=== PATIENT | male | born 1945 | race Caucasian/White ===

== ENCOUNTER 2021-12-09 14:15 | Emergency (ER) | payer MEDICARE, MEDICAID, SELFPAY ==
--- NOTE | ~2021-12-09 | XR_ITS ---
EXAMINATION: XR CHEST CLINICAL INFORMATION: Low blood pressure and sepsis COMPARISON: None TECHNIQUE: Frontal view of the chest was obtained. FINDINGS: The heart and pulmonary vessels appear normal allowing for the supine position. Some minimal atelectasis present in the right midlung and left base. No infiltrates or large effusions are present. No lung masses are seen. Rotator cuff disease is present on the left with calcification in the supraspinatus tendon. XR/XR chest 1V IMPRESSION: No acute intrathoracic disease. Underlying source of the patient's sepsis has not been found.
--- NOTE | ~2021-12-09 | CT_ITS ---
EXAMINATION: CT ABDOMEN AND PELVIS WITHOUT CONTRAST CLINICAL INFORMATION: low abdominal pain, stool coming out of decubitus . COMPARISON: No pertinent prior studies are available for comparison. TECHNIQUE: Multidetector volumetric imaging was performed from the superior aspect of the liver through the pubic symphysis without contrast per request. Sagittal and coronal reformatted images were obtained on the technologist workstation. This CT examination was performed using dose optimization techniques as appropriate, variously including the following: *Automated exposure control *Adjustment of mA and/or kV according to patient size (this includes techniques or standardized protocols for targeted exams where dose is matched to indication/reason for exam; i.e. extremities or head) *Use of iterative reconstruction technique DLP: 937 mGy-cm. FINDINGS: LUNG BASES: Linear markings at the right base more likely due to scarring or atelectasis. Skin thickening overlying the right chest noted. LIVER, GALLBLADDER, BILIARY TREE: The non-contrast liver is normal in size, shape, and attenuation. No focal hepatic lesion or biliary ductal dilatation is present. Gallstone in the dependent portion of the otherwise unremarkable gallbladder. PANCREAS: Atrophic SPLEEN: Unremarkable. ADRENAL GLANDS: Unremarkable. KIDNEYS AND URETERS: Multiple bilateral intrarenal calculi seen left more so than right. There is fullness to the left ureter as it extends to the lateral aspect of the bladder. The ureteric insertion is more lateral than I would typically expect. Uncertain if this is related to prior reimplantation. BLADDER: Air is seen in the nondependent portion the bladder. Tam catheter balloon is inflated in the prostatic urethra.. There is been a prior suprapubic catheter is there is a likely subtle tracker from the thickened anterior wall the bladder to the lower suprapubic greater than surface. There is a focal defect in the abdominal wall fat in this region although I do not appreciate a discrete drainable collection. GASTROINTESTINAL TRACT: Markedly abnormal appearance to the bowel. There is diffuse colonic wall thickening involving the rectum and sigmoid colon consistent with focal colitis/proctitis. There is mild pericolonic inflammatory changes seen more so in the rectosigmoid and perirectal region. Patient appears to be incontinent of stool with stool extending into the region of likely large decubitus ulcer extending up to the level of the sacrum. The coccyx is not visualized and presumably surgically absent. Lap band is noted. Stomach is relatively distended ABDOMINAL WALL: Extensive postoperative changes along the anterior lower abdominal wall. Large cyst sacral decubitus ulcer extending up to the remaining sacrum. I do not appreciate any discrete drainable collection within the soft tissues LYMPHOVASCULAR STRUCTURES: Extensive vascular calcification within the aorta iliac system. PELVIC VISCERA: Unremarkable. OSSEUS STRUCTURES: Degenerative changes in the spine. Coccyx likely surgically absent with Q is also extending up to the remaining sacrum. CT/CT abdomen pelvis wo con IMPRESSION: Markedly abnormal appearance to the rectosigmoid colon with diffuse colonic wall thickening consistent with a underlying proctitis/colitis. Patient appears to be incontinent of stool with stool extending to a large sacral decubitus ulcer. The decubitus ulcer extends up to the remaining sacrum and underlying osteomyelitis would be difficult to exclude. The coccyx is likely surgically absent. I do not have any prior films available for direct comparison Tam catheter balloon appears be within the prostatic urethra. Air bubbles in the nondependent bladder likely related to the Tam catheter. On the sagittal images there may have been a prior suprapubic catheter with small amount of fluid seen along the expected tract. This does extend up to a focal defect along the anterior lower abdominal wall as well. I do not appreciate a discrete drainable abdominal wall collection however. Extensive chronic appearing and postoperative changes otherwise as described above. This critical result was discussed with Dr. Freedman at 12/09/2021 5:22 PM and it was ascertained that the content and urgency of the report was understood at the time of direct communication.
--- NOTE | 2021-12-09 15:02 | ED.RECABL ---
HPI - Recheck/Abnormal Lab/Rx General Chief Complaint: Recheck/Abnormal Lab/Rx Stated Complaint: ABNORMAL LABS Time Seen by Provider: 12/09/21 14:38 Source: patient Mode of arrival: EMS Limitations: no limitations History of Present Illness HPI narrative: Patient had COVID last week, now with low blood pressure. Patients only complaint is being tired. Ambulance was supposed to go to [facility] but diverted here because his BP was low. Patient had a suprapubic and Jtube removed from abdomen now with pus coming from one of the wounds Initial visit (ago): hour(s) Initial visit for: other (low blood pressure) Associated symptoms: other (hypotension) Related Data Allergies Allergy/AdvReac Type Severity Reaction Status Date / Time No Known Allergies Allergy Verified 12/09/21 15:20 Review of Systems Constitutional: Constitutional: Reports no additional constitutional complaints Eyes: Eyes: Reports no additional eye complaints ENT: Denies dizziness Cardiovascular: Cardiovascular: Reports no additional cardiovascular complaints Respiratory: Respiratory: Reports as per HPI Gastrointestinal: Gastrointestinal: Reports no additional gastrointestinal complaints Musculoskeletal: Musculoskeletal: Reports no additional musculoskeletal complaints Integumentary/Breasts: Skin/Breast: Denies rash Neurologic: Reports system reviewed and no additional complaints, except as documented, Denies dizziness and Denies Sensory deficit (Neuro) Psychiatric: Psychiatric: Den[facility] Social History Social History Advance Directives: No Advance Directives Information Provided: No Physical Exam Vital Signs: Vital Signs: Last Vital Signs Temp 98.7 F 12/09/21 15:03 Pulse 93 12/09/21 17:54 Resp 18 12/09/21 17:54 BP 116/38 L 12/09/21 17:54 Pulse Ox 98 12/09/21 17:01 O2 Del Method 12/09/21 17:01 BMI result Body Mass Index 33.4 Const: Other: elderly male, pale Nutritional Appearance: average body habitus Orientation/consciousness: oriented to person and patient oriented x3 Limitations: no limitations HEENT: Head: Yes normal to inspection Ears: external ears normal General nose exam: Normal external nose present Mouth: Normal oral and palatal mucosa present and oropharynx normal Throat: Yes posterior oropharynx normal Eyes: General: appearance normal, both eyes and all related structures Neck: Other: supple Neck: Yes normal visual inspection Chest: Chest palpation & inspection: normal inspection of the chest Resp: Auscultation: clear to auscultation bilaterally Cardio: Jugular venous distension: no JVD Rate: regular rate Rhythm: regular rhythm Heart sounds: S1 normal heart sound present and S2 normal heart sound present GI: Inspection: Yes normal to inspection Palpation (GI): Soft to palpation, nontender and No hepatosplenomegaly present Auscultation: normal bowel sounds Back/Spine/Pelvis: Other: Large sacral decubedii with stool flowing from the wound. Skin: Other: open wounds supra pubic draining pus, large sacral decubidus Neuro: General: oriented to person and patient oriented x3 Cranial nerves: Yes CN's II-XII intact bilaterally Motor exam (neuro): 5/5 motor strength present throughout Sensory Exam: No Sensory deficit (Neuro) Extrem: General: Yes normal to inspection Psych: Appearance: grossly normal Course Reevaluation(s) Reevaluation #1: Blood pressure increased with fluids, lactic acid 1.4, CT shows colitis and pus from fistual. patient with all his surgeries from [facility] will get him transferred. Time: 17:31 Reevaluation #2: Accepted to [facility] ED Dr. Cisneros Time: 18:24 MDM - Recheck/Abnormal Lab/Rx Lab Data Result diagrams: 12/09/21 16:19 12/09/21 16:19 Labs: Lab Results 12/09/21 12/09/21 12/09/21 Range/Units 16:19 16:19 16:19 WBC 35.1 H* (4.8-10.8) X10*3/uL RBC 3.52 L (4.60-5.80) X10*6/uL Hgb 7.5 L (14.0-18.0) g/dl Hct 24.8 L (42.0-52.0) % MCV 70.5 L (80.0-98.0) fL MCH 21.3 L (27.0-33.0) pg MCHC 30.2 L (31.0-36.0) g/dl RDW 18.4 H (11.0-16.0) % Plt Count 789 H (160-400) X10*3/uL MPV 8.6 L (9.4-12.4) fL Immature Gran % (Auto) Cancelled Neut % (Auto) Cancelled Lymph % (Auto) Cancelled [place] % (Auto) Cancelled Eos % (Auto) Cancelled Baso % (Auto) Cancelled Lymph # (Auto) Cancelled [place] # (Auto) Cancelled Eos # (Auto) Cancelled Baso # (Auto) Cancelled Abs Immat Gran (auto) Cancelled Absolute Neuts (auto) Cancelled Absolute Nucleated RBC 0.000 (0.0-0.012) X10*3/uL Nucleated RBC % (auto) 0.0 (0.0-0.2) /100WBC Neutrophils % (Manual) 82 H (45-73) % Band Neutrophils % 13 H (3-5) % Lymphocytes % (Manual) 3 L (20-40) % Monocytes % (Manual) 2 (2-11) % Abs Neuts (Manual) 33.3 H (2.0-8.3) X10*3/uL Lymphocytes # (Manual) 1.1 L (1.2-4.9) X10*3/uL Monocytes # (Manual) 0.7 (0.1-1.2) X10*3/uL Platelet Estimate INCREASED (NORMAL) Plt Morphology Comment NORMAL RBC Morphology NOTED Hypochromasia 1+ (5-14) /OIF Microcytosis 1+ (5-14) /OIF PT 13.8 H (10.0-13.1) SEC INR 1.2 H (0.9-1.1) APTT 27.3 (26.0-36.4) SEC Sodium (135-145) mmol/L Potassium (3.3-5.1) mmol/L Chloride (96-108) mmol/L Carbon Dioxide (22-29) mmol/L Anion Gap (12-20) BUN (9-16) mg/dL Creatinine (0.5-1.4) mg/dL Estim Creat Clear Calc Estimated GFR Random Glucose (60-115) mg/dL Lactic Acid 1.4 (0.5-2.0) mmol/L Calcium (8.4-10.2) mg/dL Total Bilirubin (0.0-1.0) mg/dL 12/09/21 Range/Units 16:19 WBC (4.8-10.8) X10*3/uL RBC (4.60-5.80) X10*6/uL Hgb (14.0-18.0) g/dl Hct (42.0-52.0) % MCV (80.0-98.0) fL MCH (27.0-33.0) pg MCHC (31.0-36.0) g/dl RDW (11.0-16.0) % Plt Count (160-400) X10*3/uL MPV (9.4-12.4) fL Immature Gran % (Auto) Neut % (Auto) Lymph % (Auto) [place] % (Auto) Eos % (Auto) Baso % (Auto) Lymph # (Auto) [place] # (Auto) Eos # (Auto) Baso # (Auto) Abs Immat Gran (auto) Absolute Neuts (auto) Absolute Nucleated RBC (0.0-0.012) X10*3/uL Nucleated RBC % (auto) (0.0-0.2) /100WBC Neutrophils % (Manual) (45-73) % Band Neutrophils % (3-5) % Lymphocytes % (Manual) (20-40) % Monocytes % (Manual) (2-11) % Abs Neuts (Manual) (2.0-8.3) X10*3/uL Lymphocytes # (Manual) (1.2-4.9) X10*3/uL Monocytes # (Manual) (0.1-1.2) X10*3/uL Platelet Estimate (NORMAL) Plt Morphology Comment RBC Morphology Hypochromasia /OIF Microcytosis /OIF PT (10.0-13.1) SEC INR (0.9-1.1) APTT (26.0-36.4) SEC Sodium 128 L (135-145) mmol/L Potassium 4.7 (3.3-5.1) mmol/L Chloride 106 (96-108) mmol/L Carbon Dioxide 9 L* (22-29) mmol/L Anion Gap 18 (12-20) BUN 62 H (9-16) mg/dL Creatinine 1.20 (0.5-1.4) mg/dL Estim Creat Clear Calc 59.0 Estimated GFR 59 Random Glucose 147 H (60-115) mg/dL Lactic Acid (0.5-2.0) mmol/L Calcium 7.6 L (8.4-10.2) mg/dL Total Bilirubin 0.2 (0.0-1.0) mg/dL Imaging Data Chest x-ray: Radiologist's impression: no infiltrate CT scan - abdomen: Radiologist's impression: colitis in sigmoid and rectum, Stool in sacrum, osteomyelitis, cather in prostate, Left ureter hydro, ECG Data Interpretation: IMPRESSION: No acute intrathoracic disease. Underlying source of the patient's sepsis has not been found. ? Critical Care Time Critical Care Time Attestation: I spent 40 minutes of critical care, with interventions, assessments, speaking to patient, consultants, and family. Discharge Plan Discharge Clinical Impression: Colitis, Entero-colic fistula, Abdominal fistula Patient Disposition: er [facility] ([place], [place]) Transfer Details: Higher level of surgical care
[2021-12-09 15:03] VITALS: BP 85/34; BP 90/65; PULSE 82; PULSE 83; RESP 12; TEMP 37.1; O2SAT 98; BMI 33.4
[2021-12-09] MEDS: 0.9 % Sodium Chloride 2,993.7 ML 2993.7 ML IVCONT (15:36)
[2021-12-09 15:51] VITALS: BP 115/40
[2021-12-09] MEDS: cefTRIAXone sodium 1 GM in 0.9 % Sodium Chloride 50 ML IV (16:20)
[2021-12-09 16:33] LABS: INTERNATIONAL NORM RATIO 1.2 (0.9-1.1); Prothrombin Time 13.8 SEC (10.0-13.1)
[2021-12-09 16:36] LABS: Hematocrit 24.8 % (42.0-52.0); Hemoglobin 7.5 g/dl (14.0-18.0); Mean Corpuscular HGB Conc 30.2 g/dl (31.0-36.0); Mean Corpuscular Hemoglobin 21.3 pg (27.0-33.0); Mean Corpuscular Volume 70.5 fL (80.0-98.0); Mean Platelet Volume 8.6 fL (9.4-12.4); Partial Thromboplastin Time 27.3 SEC (26.0-36.4); Platelet Count 789 X10*3/uL (160-400); Red Blood Count 3.52 X10*6/uL (4.60-5.80); Red Cell Distribution Width 18.4 % (11.0-16.0)
[2021-12-09 16:41] LABS: Lactic Acid 1.4 mmol/L (0.5-2.0)
[2021-12-09 16:55] LABS: Anion Gap 18 (12-20); Bilirubin Total 0.2 mg/dL (0.0-1.0); Blood Urea Nitrogen 62 mg/dL (9-16); Calcium 7.6 mg/dL (8.4-10.2); Carbon Dioxide 9 mmol/L (22-29); Chloride 106 mmol/L (96-108); Estimated Glomerular Filt Rate 59; Glucose Random 147 mg/dL (60-115); Potassium 4.7 mmol/L (3.3-5.1); Sodium 128 mmol/L (135-145)
[2021-12-09 16:57] LABS: White Blood Count 35.1 X10*3/uL (4.8-10.8)
[2021-12-09 17:00] LABS: Neutrophils Percent Manual 82 % (45-73)
[2021-12-09 17:01] VITALS: BP 106/44; PULSE 87; RESP 18; O2SAT 98
[2021-12-09 17:06] LABS: Band Neutrophils Percent 13 % (3-5); Lymphocytes Absolute Manual 1.1 X10*3/uL (1.2-4.9); Lymphocytes Percent Manual 3 % (20-40); Microcytosis 1+ (5-14) /OIF; Monocytes Absolute Manual 0.7 X10*3/uL (0.1-1.2); Monocytes Percent Manual 2 % (2-11); Neutrophils Absolute Manual 33.3 X10*3/uL (2.0-8.3); RBC Morphology NOTED
[2021-12-09 17:07] LABS: Hypochromasia 1+ (5-14) /OIF; Platelet Estimate INCREASED (NORMAL); Platelet Morphology Comment NORMAL
[2021-12-09 17:16] VITALS: BP 117/39
[2021-12-09 17:54] VITALS: BP 116/38; PULSE 93; RESP 18
--- NOTE | 2021-12-09 18:06 | PC.NURSE ---
patient has large sacral area and above wound, large amounts of stool draining from wound. while rolling patient to clean up stool, nephrostomy tube noticed to be out of place. dr moreno notified.
[2021-12-09 18:27] LABS: COVID-19 Test Positive (Negative); IDNOW Serial# 16C4AD1C
[2021-12-09 19:20] VITALS: BP 93/34; PULSE 96
--- NOTE | 2021-12-09 19:20 | PC.NURSE ---
call was placed to [facility] per providers request to transfer. [facility] was called at [phone]. [facility] called back at 1815 with ed to ed transfer accepting provider is Dr Cisneros, Call was placed to [facility] for ALS transfer at [phone] . [facility] said 30 min for transfer.
== END 2021-12-09 19:53 | disposition short-term general hospital (02) ==
PROVIDERS: Emergency Provider Emergency Medicine
DX: U07.1 COVID-19 (principal); K52.9 Noninfective gastroenteritis and colitis, unspecified; K63.2 Fistula of intestine
CPT/HCPCS: 36415; 71045; 74176; 80048; 82247; 83605; 85007; 85027; 85610; 85730; 87040; 87086; 87088; 87186; 87635; 96361; 96374; 96375; 99285; J0696; J3370